=== PATIENT | male | born 1985 | race Caucasian/White ===

== ENCOUNTER 2018-07-12 12:44 | Emergency (ER) | payer OTHER ==
[2018-07-12] MEDS: NICOTINE 21MG/24HR 1 EA TRANSDERMAL TD (13:15)
[2018-07-12 13:27] LABS: HEMATOCRIT 42.1 % (42.0-52.0); HEMOGLOBIN 14.5 g/dl (13.5-17.5); MEAN CORPUSCULAR HEMOGLOBIN 29.8 pg (27.0-33.0); MEAN CORPUSCULAR HGB CONC 34.4 g/dl (32.0-36.5); MEAN CORPUSCULAR VOLUME 86.6 fl (80.0-96.0); PLATELET COUNT, AUTOMATED 516 10^3/uL (150-450); RED BLOOD COUNT 4.86 10^6/uL (4.30-6.10); RED CELL DISTRIBUTION WIDTH 13.1 % (11.5-14.5); WHITE BLOOD COUNT 13.1 10^3/uL (4.0-10.0)
[2018-07-12] MEDS: ALPRAZolam 0.5 MG TAB PO (13:30)
[2018-07-12 14:11] LABS: ACETAMINOPHEN LEVEL < 2.0 UG/ML (10.0-30.0); ALBUMIN 3.4 GM/DL (3.2-5.2); ALBUMIN/GLOBULIN RATIO 0.76 (1.00-1.93); ALKALINE PHOSPHATASE 126 U/L (45-117); ALT/SGPT 34 U/L (12-78); ANION GAP 8 MEQ/L (8-16); AST/SGOT 25 U/L (7-37); BILIRUBIN,DIRECT < 0.1 MG/DL (0.0-0.2); BILIRUBIN,TOTAL 0.3 MG/DL (0.2-1.0); BLOOD UREA NITROGEN 9 MG/DL (7-18); CARBON DIOXIDE LEVEL 27 MEQ/L (21-32); CHLORIDE LEVEL 104 MEQ/L (98-107); CREATININE FOR GFR 0.97 MG/DL (0.70-1.30); ETHYL ALCOHOL (ETHANOL) 0.003 % (0.000-0.010); GLOMERULAR FILTRATION RATE > 60.0 (>60); GLUCOSE, FASTING 87 MG/DL (70-100); POTASSIUM SERUM 3.8 MEQ/L (3.5-5.1); SALICYLATE LEVEL < 1.7 MG/DL (5.0-30.0); SODIUM LEVEL 139 MEQ/L (136-145); TOTAL PROTEIN 7.9 GM/DL (6.4-8.2)
[2018-07-12 14:18] LABS: AMPHETAMINES LEVEL URINE NEGATIVE (NEGATIVE); BARBITURATES URINE NEGATIVE (NEGATIVE); BENZODIAZEPINES URINE NEGATIVE (NEGATIVE); CANNABINOIDS URINE NEGATIVE (NEGATIVE); COCAINE METABOLITE URINE NEGATIVE (NEGATIVE); METHADONE URINE NEGATIVE (NEGATIVE); OPIATES URINE NEGATIVE (NEGATIVE); PHENCYCLIDINE URINE NEGATIVE (NEGATIVE)
== END 2018-07-12 17:30 | disposition home or self-care (01) ==
LOC: M ED 12:44
DX: F43.0 Acute stress reaction (principal); F41.9 Anxiety disorder, unspecified; F43.10 Post-traumatic stress disorder, unspecified; R45.850 Homicidal ideations; Z72.0 Tobacco use; Z79.899 Other long term (current) drug therapy; Z88.0 Allergy status to penicillin; Z88.8 Allergy status to other drugs, medicaments and biological substances
CPT/HCPCS: G0480

== ENCOUNTER 2018-12-27 21:34 | Inpatient (IN) | payer OTHER ==
[~2018-12-27] VITALS: Ht 157.5 cm; Wt 59.9 kg
[~2018-12-27 21:34] MED LIST: ABIL1TAB11 PO; BUPR150T3 PO; MELO15TA28 PO; NEUR600T PO; PRAZ2CAP PO; TRAZ-163 PO; WELL100T2 PO
[2018-12-27 21:57] LABS: HEMATOCRIT 41.3 % (42.0-52.0); HEMOGLOBIN 14.6 g/dl (13.5-17.5); MEAN CORPUSCULAR HEMOGLOBIN 30.5 pg (27.0-33.0); MEAN CORPUSCULAR HGB CONC 35.4 g/dl (32.0-36.5); MEAN CORPUSCULAR VOLUME 86.4 fl (80.0-96.0); PLATELET COUNT, AUTOMATED 385 10^3/uL (150-450); RED BLOOD COUNT 4.78 10^6/uL (4.30-6.10); WHITE BLOOD COUNT 9.1 10^3/uL (4.0-10.0)
[2018-12-27 22:16] LABS: AMPHETAMINES LEVEL URINE NEGATIVE (NEGATIVE); BARBITURATES URINE NEGATIVE (NEGATIVE); BENZODIAZEPINES URINE NEGATIVE (NEGATIVE); CANNABINOIDS URINE NEGATIVE (NEGATIVE); COCAINE METABOLITE URINE NEGATIVE (NEGATIVE); METHADONE URINE NEGATIVE (NEGATIVE); OPIATES URINE NEGATIVE (NEGATIVE); PHENCYCLIDINE URINE NEGATIVE (NEGATIVE)
[2018-12-27 22:34] LABS: ACETAMINOPHEN LEVEL < 2.0 UG/ML (10.0-30.0); ALBUMIN 4.2 GM/DL (3.2-5.2); ALT/SGPT 25 U/L (12-78); BILIRUBIN,DIRECT 0.2 MG/DL (0.0-0.2); BILIRUBIN,TOTAL 0.5 MG/DL (0.2-1.0); BLOOD UREA NITROGEN 4 MG/DL (7-18); CALCIUM LEVEL 9.5 MG/DL (8.5-10.1); CARBON DIOXIDE LEVEL 26 MEQ/L (21-32); CHLORIDE LEVEL 106 MEQ/L (98-107); CREATININE FOR GFR 0.97 MG/DL (0.70-1.30); ETHYL ALCOHOL (ETHANOL) < 0.003 % (0.000-0.010); GLOMERULAR FILTRATION RATE > 60.0 (>60); GLUCOSE, FASTING 108 MG/DL (70-100); POTASSIUM SERUM 3.6 MEQ/L (3.5-5.1); SALICYLATE LEVEL < 1.7 MG/DL (5.0-30.0); SODIUM LEVEL 142 MEQ/L (136-145)
[2018-12-28] MEDS ORDERED: MAALOX 30 ML SUSP *UDC PO PRN (00:15)
[2018-12-28] MEDS ORDERED: MOM 30ML SUSPENSION UDC PO PRN (00:15)
[2018-12-28] MEDS ORDERED: traZODone 50 MG TAB PO PRN (00:15)
[2018-12-28] MEDS ORDERED: hydrOXYzine 25 MG TAB PO PRN (00:15)
[2018-12-28] MEDS ORDERED: zolPIDEM TARTRATE 5 MG TAB PO ONE (00:30)
[2018-12-28] MEDS ORDERED: LIDO5OIN19 EXT (01:29)
[2018-12-28] MEDS ORDERED: TRAZ-189 PO (01:29)
[2018-12-28] MEDS ORDERED: CYMB1CAP5 PO (01:29)
[2018-12-28] MEDS ORDERED: PRAZ2CAP PO (01:29)
[2018-12-28] MEDS ORDERED: ABIL1TAB13 PO (01:29)
[2018-12-28] MEDS ORDERED: METH1TAB40 PO (01:29)
[2018-12-28 02:24] VITALS: BP 141/93
[2018-12-28 06:08] VITALS: BP 139/58
--- NOTE | 2018-12-28 07:41 | HPEPDOC ---
General Date of Admission December 28, 2018 at 00:14 Date of Service: December 28, 2018 Primary Care Physician: A Attending Physician: CHASTITY CLEVELAND MD Chief Complaint The patient is a 33-year-old male admitted with a reason for visit of Unspecified Depressive Disorder. History of Present Illness Patient is a 33-year-old male, admitted on account of suicidal attempt. He admitted to friends he wanted to hang himself with a cord in a hotel room. He has a past medical history significant for anxiety and depression. Recently discharged from duty and feels this is a huge reason for his acute psychiatric presentation. Has also not heard from his significant other of over 2 yearsa and is worried. On assessment, he complains of low back pain with radiculopathy, which has been ongoing for a year. Recently started physical therapy. Otherwise, denies chills, fever, chest pain, shortness of breath Home Medications Scheduled Aripiprazole (Abilify) 2 Mg Tablet, 2 MG PO QHS, (Reported) Duloxetine Hcl (Cymbalta) 30 Mg Capsule.dr, 30 MG PO BID, (Reported) Prazosin Hcl (Prazosin HCl) 2 Mg Capsule, 4 MG PO QHS, (Reported) Trazodone HCl (Trazodone HCl) 100 Mg Tablet, 200 MG PO QHS, (Reported) Scheduled PRN Lidocaine (Lidocaine) 120 Gm Oint...g., 1 DOSE EXT QID PRN for PAIN, (Reported) USES ON BACK Methocarbamol (Methocarbamol) 500 Mg Tablet, 500 MG PO BID PRN for MUSCLE SPASMS, (Reported) Allergies Coded Allergies: amoxicillin (Verified Allergy, Severe, hives, 12/27/18) Penicillins (Verified Allergy, Intermediate, hives, 12/27/18) sertraline (Verified Adverse Reaction, Mild, diarrhea, 12/27/18) Past Medical History Medical History Degenerative disc disease Lumbar radiculopathy Depression PTSD Anxiety Surgical History Denies Social History * Smoker: Denies Alcohol: Denies Drugs: denies A-FIB/CHADSVASC A-FIB History Current/History of A-Fib/PAF?: No Current PO Anticoag Therapy: No Review of Systems Other systems A 10 point pertinent review of systems was completed, negative except as stated in the history of presenting illness. Physical Examination Other physical findings GENERAL: NAD SKIN : Warm, dry intact HEENT: Atraumatic, normocephalic, PERRL, moist mucous membrane CARDIOVASCULAR: Regular rate and rhythm, S1S2, no JVD, no edema, distal pulses + and palpable RESP: CTAB, no accessory muscle use noted ABDOMEN: BS+ non distended non tender MS: pain on palpation of lumbar paraspinous muscles,no joint deformities NEURO: Alert and oriented x 3, CN2-12 grossly intact PSYCH: anxious Vital Signs Vital Signs Date Time Temp Pulse Resp B/P (MAP) Pulse Ox O2 Delivery O2 Flow Rate FiO2 12/28/18 06:08 97.6 97 16 139/58 (85) 12/28/18 00:55 99 Room Air Laboratory Data Labs 24H Laboratory Tests 2 12/27/18 21:48: Nucleated Red Blood Cells % (auto) 0.0, Anion Gap 10, Glomerular Filtration Rate > 60.0, Calcium Level 9.5, Aspartate Amino Transf (AST/SGOT) 18, Alanine Aminotransferase (ALT/SGPT) 25, Alkaline Phosphatase 136H, Total Bilirubin 0.5, Direct Bilirubin 0.2, Total Protein 8.0, Albumin 4.2, Albumin/Globulin Ratio 1.11, Thyroid Stimulating Hormone (TSH) 1.840, Salicylates Level < 1.7L, Urine Amphetamines Screen NEGATIVE, Urine Benzodiazepines Screen NEGATIVE, Urine Opiates Screen NEGATIVE, Urine Methadone Screen NEGATIVE, Acetaminophen Level < 2.0L, Urine Barbiturates Screen NEGATIVE, Urine Phencyclidine Screen NEGATIVE, Urine Cocaine Metabolite Screen NEGATIVE, Urine Cannabinoids Screen NEGATIVE, Ethyl Alcohol Level < 0.003 CBC/BMP Laboratory Tests 12/27/18 21:48 Red Blood Count 4.78, Mean Corpuscular Volume 86.4, Mean Corpuscular Hemoglobin 30.5, Mean Corpuscular Hemoglobin Concent 35.4, Red Cell Distribution Width 14.1 Assessment/Plan Degenerative Disc disease -reported lumbar radiculapathy by patient -currently started physicial therapy -prescribe low dose muscle relaxer and NSAID as needed Suicide attempt -Management by primary team Major depression -Management by primary team DVT prophylaxis -Patient is frequently ambulatory Plan / VTE VTE Prophylaxis Ordered?: No VTE Exclusion Mechanical Proph: Low Risk for VTE KHARI MCKEON December 28, 2018 07:41
[2018-12-28] MEDS ORDERED: IBUPROFEN 800 MG TAB PO PRN (11:45)
[2018-12-28] MEDS ORDERED: CYCLOBENZAPRINE 5MG TABLET PO PRN (11:45)
--- NOTE | 2018-12-28 13:38 | MHHPEPDOC ---
General Date Of Admission: December 27, 2018 Legal Status: 9.39 Chief Complaint "I tried to hang myself yesterday." History of Present Illness HISTORY OF THE PRESENT ILLNESS: Patient is a 33 -year-old , male, with a history of PTSD and SA who presented to the PD after going to the police stati on yesterday and telling them he attempted to hanging him self by taking his alarm clock and putting cord around shower so could hang from other end of cord but didn't work b/c cord not strong enough per ED. Stated in ED that he had been feeling depressed, hopeless, and helpless after his girlfriend told him she had cheated on him. He also endorse alcohol abuse prior SA in ED although BAL negative in ED. Stated "I am like Getachew Marte, alone in a dark room" regarding his depression and SI per ED. Pt has been on terminal leave from [employer] with medical assisted for PTSD relating to combats deployments to [place] per ED. In 02/2018 he attended [facility] in [place] and he follow's up at [facility] per ED. He has a history of cutting, last time 10yrs ago per ED. Psychiatric Review of Systems Depression (2 or more weeks): depressed mood, feelings of worthlesness, difficulty concentrating, suicidal thoughts Lola (4 or more days of): denies Psychosis: denies PTSD: history of trauma, nightmares and flashbacks, intrusive memories, hypervigilance, avoidance of triggers, mood fluctuations Anxiety: situational anxiety, stressor related anxiety Anxiety/ 6 months or more of: restlessness, keyed up, difficulty concentrating, irritability, muscle tension Past Psychiatric History Previous Psychiatric Diagnosis: PTSD Previous Psychiatric Admissions: [facility] in [place] 02/2018 for PTSD Suicide Attempts: history of cutting 10yrs ago and history SI no attempts Psychiatric Follow-up: [facility] Psychiatric medications: prazosin 4mg qhs, trazodone 200mg qhs, cymbalta 30mg daily, abilify 2mg qhs Past Medical History Medical Problems muscled pain Head Injury: No Seizures: No Hospitalizations: No Surgeries: No Family Medical/Psychiatric HX Medical Problems noncontributory Psychiatric Disorders: No Addiction: No Suicide Attemps/Completions: No Addiction History nicotine (used to smoke), alcohol, other (utox negative) Social History Childhood: Raised in [place], 2 parent home, 2 younger sister, very good childhood Abuse/Trauma:2 combat deployment, 1 to [place] (2007) and 1 to [place] (2010) Current Living Situation: lives [place] [address] with Girlfriend and her 3 kids Education: high school edu Employment: medically retired from [employer] 1wk ago, in 14yrs, E6 on assisted Social Support: girlfriend, family Legal: denies Marital: from currently who currently has daughter and 2 step kids Mental Status Examination General Appearance: well groomed, appears stated age, hospital scubs/clothing Build: average, other (very short) Demeanor: average Eye Contact: average Activity: average Behavior: cooperative Speech: clear, spontaneous, reg/rate,rhythm,volume Mood: depressed Mood "like zombie" Affect: constricted, congruent Thought Process: logical/linear, depressed, intact Thought Content (Delusions): none reported, denies SI, HI, AVH Thought Content (Other): none reported, appropriate Thought Content (Aggressive): none reported Perception (Hallucinations): none reported Perception (Other): none reported Cognition (Impairment of): none reported Cognition(Intelligence Est.): average Oriented: Awake, Alert, Oriented times three Insight: fair Judgment: Fair Psychosis: Denies Diagnoses PTSD depression unspecified A-FIB/CHADSVASC A-FIB History Current/History of A-Fib/PAF?: No Current PO Anticoag Therapy: No Treatment Treatment ordered: NONE Reason Anticoagulant not given: Not indicated/[id number] Assessment Pt seen and states he was feeling "hurt and alone." States "I don't want to " and doesn't want to leave his daughter and step kids w/o a father. States he's glad his SA wasn't successful. States his meds make him feel like a "zo mbie" and hasn't taken them for a month b/c he was watching his kids. Endorses fatigue from cymbalta, trazodone, and abilify and would like to change them. Discussed changing meds to effexor xr (more activating SNRI), seroquel 25mg qhs (so lower dose effective as trazodone 100mg not enough and trazodone 200mg too much, explicitly requested change due to hang over effect in am), and rexulti 0.5mg (as is less sedating than abilify). Risks/benefits of all discussed. Denies SI/HI, hallucinations, delusions. Feels safe here. Initial Treatment Plan 1. Patient was admitted on a 9.39 status. 2. Complete history was obtained. 3. With patients permission, family will be contacted and database will be expanded. 4. Patients medication regimen will be reviewed and changed accordingly. 5. Patient will be provided with protected environment. 6. Patient will be treated with individual, group, and milieu therapies. 7. Patient will receive supportive psych-education. 8. Discharge planning will commence immediately. 9. Outpatient follow-up treatment will be strongly recommended. 10. The initial treatment plan will focus initially on: * Depression. * Risk for suicide. * Substance abuse. 11. restart prazosin 4mg qhs, d/c trazodone and cymbalta, and abilify. Start seroquel 25mg qhs for sleep, effexor XR 75mg daily for mood, and rexulti 0.5mg qhs for augmentation effexor xr. ESTIMATED LENGTH OF STAY: 5-7 DAYS. TIME SPENT COUNSELING AND COORDINATING INITIAL CARE: 60 minutes. Vital Signs Vital Signs Date Time Temp Pulse Resp B/P (MAP) Pulse Ox O2 Delivery O2 Flow Rate FiO2 12/28/18 06:08 97.6 97 16 139/58 (85) 12/28/18 00:55 99 Room Air Laboratory Data 24H Labs Laboratory Tests 2 12/27/18 21:48: Nucleated Red Blood Cells % (auto) 0.0, Anion Gap 10, Glomerular Filtration Rate > 60.0, Calcium Level 9.5, Aspartate Amino Transf (AST/SGOT) 18, Alanine Aminotransferase (ALT/SGPT) 25, Alkaline Phosphatase 136H, Total Bilirubin 0.5, Direct Bilirubin 0.2, Total Protein 8.0, Albumin 4.2, Albumin/Globulin Ratio 1.11, Thyroid Stimulating Hormone (TSH) 1.840, Salicylates Level < 1.7L, Urine Amphetamines Screen NEGATIVE, Urine Benzodiazepines Screen NEGATIVE, Urine Opiates Screen NEGATIVE, Urine Methadone Screen NEGATIVE, Acetaminophen Level < 2.0L, Urine Barbiturates Screen NEGATIVE, Urine Phencyclidine Screen NEGATIVE, Urine Cocaine Metabolite Screen NEGATIVE, Urine Cannabinoids Screen NEGATIVE, Ethyl Alcohol Level < 0.003 CBC/BMP Laboratory Tests 12/27/18 21:48 Red Blood Count 4.78, Mean Corpuscular Volume 86.4, Mean Corpuscular Hemoglobin 30.5, Mean Corpuscular Hemoglobin Concent 35.4, Red Cell Distribution Width 14.1 Medications Scheduled Aripiprazole (Abilify) 2 Mg Tablet, 2 MG PO QHS, (Reported) Duloxetine Hcl (Cymbalta) 30 Mg Capsule.dr, 30 MG PO BID, (Reported) Prazosin Hcl (Prazosin HCl) 2 Mg Capsule, 4 MG PO QHS, (Reported) Trazodone HCl (Trazodone HCl) 100 Mg Tablet, 200 MG PO QHS, (Reported) Scheduled PRN Lidocaine (Lidocaine) 120 Gm Oint...g., 1 DOSE EXT QID PRN for PAIN, (Reported) USES ON BACK Methocarbamol (Methocarbamol) 500 Mg Tablet, 500 MG PO BID PRN for MUSCLE SPASM S, (Reported) Allergies Coded Allergies: amoxicillin (Verified Allergy, Severe, hives, 12/27/18) Penicillins (Verified Allergy, Intermediate, hives, 12/27/18) sertraline (Verified Adverse Reaction, Mild, diarrhea, 12/27/18) AMAURY DRIVER DO December 28, 2018 13:38
[2018-12-28] MEDS ORDERED: VENLAFAXINE **XR** 37.5 MG CAPSULE PO ONE (14:00)
[2018-12-28] MEDS: BREXPIPRAZOLE 0.5MG TABLET (REXULTI) PO SCH (16:44)
[2018-12-28 17:52] VITALS: BP 139/87
[2018-12-28] MEDS: PRAZOSIN 1 MG CAP PO SCH (20:27)
[2018-12-28] MEDS: QUEtiapine FUMARATE 25 MG TAB PO SCH (20:27)
[2018-12-29 06:39] VITALS: BP 128/64
[2018-12-29] MEDS: VENLAFAXINE **XR** 75MG CAPSULE PO SCH (10:10)
--- NOTE | 2018-12-29 16:18 | MHIPN ---
DATE: 12/29/2018 CHIEF COMPLAINT: Feels better. SUBJECTIVE: Seen for followup in the presence of staff. Says feels better, less anxious, more confident, less depressed. Says does not ruminate as much as he had initially. MENTAL STATUS EXAMINATION: Neat, cooperative. No agitation. No psychomotor retardation. He is coherent. Affect is fairly broad. Denies any thoughts of harming himself or anyone else. At present does not appear to be internally preoccupied. No psychotic feature are elicited. Cognition is grossly intact. Judgment and insight are improved. ASSESSMENT: 1. Posttraumatic stress disorder. 2. Other specified depressive disorder. Matters are improved, and he is more confident, less depressed. PLAN: He is to continue with current care, including the quetiapine, venlafaxine, prazosin, Rexulti. He is to be encouraged to participate in activities in the unit. VITAL SIGNS: Blood pressure 128/64, pulse 86, temperature 97.8.
[2018-12-29] MEDS: BREXPIPRAZOLE 0.5MG TABLET (REXULTI) PO SCH (16:49)
[2018-12-29 18:10] VITALS: BP 130/85
[2018-12-29] MEDS: QUEtiapine FUMARATE 25 MG TAB PO SCH (20:10)
[2018-12-29] MEDS: PRAZOSIN 1 MG CAP PO SCH (20:10)
[2018-12-30 06:33] VITALS: BP 127/66
[2018-12-30] MEDS: VENLAFAXINE **XR** 75MG CAPSULE PO SCH (09:05)
[2018-12-30] MEDS: BREXPIPRAZOLE 0.5MG TABLET (REXULTI) PO SCH (16:41)
[2018-12-30] MEDS: ACETAMINOPHEN TAB 650MG DOSE (2X325MG) PO PRN ×2 (17:24→20:21)
[2018-12-30 18:01] VITALS: BP 124/68
[2018-12-30 20:20] VITALS: BP 140/90
[2018-12-30] MEDS: PRAZOSIN 1 MG CAP PO SCH (20:20)
[2018-12-30] MEDS: QUEtiapine FUMARATE 25 MG TAB PO SCH (20:21)
[2018-12-31 06:51] VITALS: BP 121/72
[2018-12-31] MEDS: VENLAFAXINE **XR** 75MG CAPSULE PO SCH (08:33)
--- NOTE | 2018-12-31 09:12 | MHIPN ---
DATE: 12/30/2018 CHIEF COMPLAINT: Feels good. SUBJECTIVE: Is seen for followup. Says feels good, less anxious, slept well, appetite is improved. MENTAL STATUS EXAMINATION: He is neat. He is cooperative. There is no agitation. No psychomotor retardation. He is coherent. Affect is fairly broad. Denies any thoughts of harming himself or anyone else. No current evidence of any psychosis. Cognition is grossly intact. Judgment and insight improved. ASSESSMENT: 1. Posttraumatic stress disorder (PTSD). 2. Other specified depressive disorder. Moods are improved, less anxious and less depressed overall. PLAN: Continue current care. Encourage participation in activities in the unit. He is to see his treatment team tomorrow. VITAL SIGNS: Blood pressure 127/66, pulse 67, temperature is 98.6.
[2018-12-31] MEDS ORDERED: VENL75CA47 PO (09:45)
[2018-12-31] MEDS ORDERED: REXU1TAB2 PO (09:45)
[2018-12-31] MEDS ORDERED: PRAZ2CAP PO (09:45)
[2018-12-31] MEDS ORDERED: QUET1TAB7 PO (09:45)
[2018-12-31] MEDS ORDERED: HYDR-3363 PO (09:45)
--- NOTE | 2018-12-31 09:46 | MHDSPDOC ---
[facility] Discharge Summary Discharge Summary DATE OF ADMISSION: December 28, 2018 at 12:14 am DATE OF DISCHARGE: December 31, 2018 DISCHARGE DIAGNOSES: PTSD depression unspecified REASON FOR ADMISSION: Patient is a 33 -year-old , male, with a history of PTSD and SA who presented to the PD after going to the police station yesterday and telling them he attempted to hanging him self by taking his alarm clock and putting cord around shower so could hang from other end of cord but didn't work b/c cord not strong enough per ED. Stated in ED that he had been feeling depressed, hopeless, and helpless after his girlfriend told him she had cheated on him. He also endorse alcohol abuse prior SA in ED although BAL negative in ED. Stated "I am like Getachew Marte, alone in a dark room" regarding his depression and SI per ED. Pt has been on terminal leave from [employer] with medical pen[facility]ent[facility] for PTSD relating to combats deployments to [place] per ED. In 02/2018 he attended [facility] in [place] and he follow's up at [facility] per ED. He has a history of cutting, last time 10yrs ago per ED. CONSULTANTS INVOLVED: none TREATMENT AND PROGRESS ON THE UNIT : Pt was admitted to [facility], seen for psychiatric assessment and restarted on his outpatient medication prazosin 4mg qhs. His trazodone, cymbalta, and abilify were discontinued. He was started seroquel 25mg qhs for sleep, effexor XR 75mg daily for mood, and rexulti 0.5mg qhs for augmentation effexor xr. He was provided atarax 25mg q6hr prn anxiety. Pt found his medications beneficial and tolerated them well. He attended groups daily during his stay. His symptoms improved with treatment. On day of discharge he denied depression, anxiety, insomnia, SI/HI, hallucinations, delusions. He was discharged home after [facility] meeting with follow-up at [facility]. He felt safe for discharge. DISCHARGE ASSESSMENT: Pt seen and states that his mood is good and he's looking forward to going home to his family. States he slept well last night. Feels he is tolerating his medications and they're beneficial. He is attending groups and finding them helpful. He denies depression, anxiety, insomnia, SI/HI, hallucinations, delusions. Pt feels safe to be discharged home with his [facility]. MENTAL STATUS EXAMINATION ON DISCHARGE: General Appearance: well groomed, appears stated age, own clothing Build: average Demeanor: average Eye Contact: average Activity: average Behavior: cooperative Speech: clear, spontaneous, reg/rate,rhythm,volume Mood: euthymic, full Mood "good" Affect: full, congruent Thought Process: logical/linear, intact Thought Content (Delusions): none reported, denies SI, HI, AVH Thought Content (Other): none reported, appropriate Thought Content (Aggressive): none reported Perception (Hallucinations): none reported Perception (Other): none reported Cognition (Impairment of): none reported Cognition(Intelligence Est.): average Oriented: Awake, Alert, Oriented times three Insight: good Judgment: good Psychosis: Denies MEDICATIONS ON DISCHARGE: prazosin 4mg qhs seroquel 25mg qhs for sleep effexor XR 75mg daily for mood rexulti 0.5mg qhs atarax 25mg q6hr prn anxiety PLAN/FOLLOWUP ARRANGEMENTS: D/c home with follow-up at [facility]. The amount of time spent in the coordination of care for this patient was approximately 30 minutes. Vital Signs/I&Os Vital Signs Date Time Temp Pulse Resp B/P (MAP) Pulse Ox O2 Delivery O2 Flow Rate FiO2 12/31/18 06:51 99.0 73 16 121/72 (88) 12/28/18 00:55 99 Room Air Medications Scheduled Aripiprazole (Abilify) 2 Mg Tablet, 2 MG PO QHS, (Reported) Duloxetine Hcl (Cymbalta) 30 Mg Capsule.dr, 30 MG PO BID, (Reported) Prazosin Hcl (Prazosin HCl) 2 Mg Capsule, 4 MG PO QHS, (Reported) Trazodone HCl (Trazodone HCl) 100 Mg Tablet, 200 MG PO QHS, (Reported) Scheduled PRN Lidocaine (Lidocaine) 120 Gm Oint...g., 1 DOSE EXT QID PRN for PAIN, (Reported) USES ON BACK Methocarbamol (Methocarbamol) 500 Mg Tablet, 500 MG PO BID PRN for MUSCLE SPASMS, (Reported) Allergies Coded Allergies: amoxicillin (Verified Allergy, Severe, hives, 12/27/18) Penicillins (Verified Allergy, Intermediate, hives, 12/27/18) sertraline (Verified Adverse Reaction, Mild, diarrhea, 12/27/18) AMAURY DRIVER DO Dec 31, 2018 9:46 am
== END 2018-12-31 14:10 | disposition home or self-care (01) | DRG 882 ==
LOC: M ED 21:34 → M ED INP 12-28 00:14 → M PSY 12-28 02:17
PROVIDERS: ADMIT Psychiatry & Neurology Psychiatry; ATTEND Psychiatry & Neurology Psychiatry
DX: F43.10 Post-traumatic stress disorder, unspecified (principal); R45.851 Suicidal ideations; F32.9 Major depressive disorder, single episode, unspecified; Z88.0 Allergy status to penicillin; Z79.899 Other long term (current) drug therapy; Z88.8 Allergy status to other drugs, medicaments and biological substances; M51.36 Other intervertebral disc degeneration, lumbar region; F41.9 Anxiety disorder, unspecified